=== PATIENT | male | born 1995 | race Caucasian/White ===

== ENCOUNTER 2019-04-17 23:20 | Emergency (ER) | payer OTHER ==
[~2019-04-17] VITALS: Ht 175.3 cm; Wt 113.4 kg
[2019-04-18] MEDS ORDERED: NORCO 5-325 TA1 EACH PO (01:27)
[2019-04-18] MEDS ORDERED: CRUTCH1 EACH MISC (01:28)
== END 2019-04-18 01:45 | disposition home or self-care (01) ==
LOC: ED 23:20
DX: S82.892A Other fracture of left lower leg, initial encounter for closed fracture (principal); X50.9XXA Other and unspecified overexertion or strenuous movements or postures, initial encounter; Z88.1 Allergy status to other antibiotic agents
CPT/HCPCS: 73610; 99283

== ENCOUNTER 2020-05-27 17:03 | Emergency (ER) | payer OTHER ==
[~2020-05-27] VITALS: Ht 175.3 cm; Wt 113.4 kg
[~2020-05-27 17:03] MED LIST: CRUTCH1 EACH MISC; NORCO 5-325 TA1 EACH PO
== END 2020-05-27 21:15 | disposition home or self-care (01) ==
LOC: ED 17:03
DX: S93.401A Sprain of unspecified ligament of right ankle, initial encounter (principal); W11.XXXA Fall on and from ladder, initial encounter; Z88.1 Allergy status to other antibiotic agents
CPT/HCPCS: 73610; 99283-25